=== PATIENT | male | born 1995 ===

== ENCOUNTER 2018-01-18 10:24 | Emergency (ER) | payer OTHER ==
[2018-01-18 10:35] VITALS: BMI 23.6
[2018-01-18 10:37] VITALS: TEMP 97.5
[2018-01-18 11:14] VITALS: RESP 18
--- NOTE | 2018-01-18 11:17 | ED PDOC ---
HPI: General Adult Time Seen by Provider: 01/18/18 10:49 Chief Complaint (Nursing): Medical Clearance Chief Complaint (Provider): Medical and Psych Clearance History Per: Patient History/Exam Limitations: no limitations Onset/Duration Of Symptoms: Mins (30 minutes ago) Current Symptoms Are (Timing): Still Present Additional Complaint(s): 22 yo male, brought in by EMS and accompanied by law enforcement, presents to the ED for medical and psych clearance before incarceration, onset of 30 minutes prior to arrival. Patient was combative during arrest, but doesn't voice any complaints. Past Medical History Reviewed: Historical Data, Nursing Documentation, Vital Signs Vital Signs: Last Vital Signs Temp 97.5 F L 01/18/18 10:36 Pulse 85 01/18/18 11:13 Resp 18 01/18/18 11:13 BP 132/66 01/18/18 11:13 Pulse Ox 99 01/18/18 11:32 - Medical History PMH: No Chronic Diseases - Surgical History Surgical History: No Surg Hx - Family History Family History: States: Unknown Family Hx - Social History Current smoker - smoking cessation education provided: Yes (heavy) Alcohol: Social Drugs: Cannabis - Allergies Allergies/Adverse Reactions: Allergies Allergy/AdvReac Type Severity Reaction Status Date / Time No Known Allergies Allergy Verified 01/18/18 10:34 Review of Systems ROS Statement: Except As Marked, All Systems Reviewed And Found Negative Constitutional: Negative for: Fever Psych: Negative for: Suicidal ideation (or homicidal ideation) Physical Exam - Reviewed Nursing Documentation Reviewed: Yes Vital Signs Reviewed: Yes - Physical Exam Appears: Positive for: Non-toxic, No Acute Distress Head Exam: Positive for: ATRAUMATIC Skin: Positive for: Normal Color Eye Exam: Positive for: Normal appearance, EOMI Extremity: Positive for: Normal ROM. Negative for: Pedal Edema, Deformity Neurologic/Psych: Positive for: Alert, Oriented - ECG O2 Sat by Pulse Oximetry: 99 (RA) Pulse Ox Interpretation: Normal Medical Decision Making Medical Decision Making: Time: --10:50 Impression: --Visit for medical and psych clearance Plan: --Crisis Evaluation Reassess --patient has been medically cleared and referred to crisis for evaluation --11:31 patient is cleared by crisis for discharge to law enforcement. Diagnosis: Adjustment Disorder Scribe Attestation: Documented by Abdon Hernandez acting as a chidi Benoit MD. Provider Attestation: All medical record entries made by the Chidi were at my direction and personally dictated by me. I have reviewed the chart and agree that the record accurately reflects my personal performance of the history, physical exam, medical decision making, and the department course for this patient. I have also personally directed, reviewed, and agree with the discharge instructions and disposition. Disposition - Clinical Impression Clinical Impression: Medical clearance for incarceration - Patient ED Disposition Is Patient to be Admitted: No Doctor Will See Patient In The: Office Counseled Patient/Family Regarding: Studies Performed, Diagnosis, Need For Followup - Disposition Disposition: Discharged/Transfer to Law Enforcement Disposition Time: 11:31 Condition: GOOD Additional Instructions: Patient is medically and psychiatrically cleared for incarceration.
[2018-01-18 11:40] VITALS: BP 125/64; PULSE 80; O2SAT 98
== END 2018-01-18 11:54 | disposition home or self-care (01) ==
LOC: H.ER 10:24
DX: F43.20 Adjustment disorder, unspecified; F17.200 Nicotine dependence, unspecified, uncomplicated